=== PATIENT | male | born 1990 | race Caucasian/White ===

== ENCOUNTER 2022-01-29 17:22 | Outpatient (CLI) | payer BC ==
[2022-01-30 15:48] LABS: SARS-CoV-2 PCR by NAA Not Detected (NotDetected)
== END 2022-01-29 17:23 | disposition home or self-care (01) ==
LOC: LABBT 17:22
PROVIDERS: ATTEND Otolaryngology Plastic Surgery within the Head & Neck
DX: J34.2 Deviated nasal septum (principal); R06.00 Dyspnea, unspecified; J34.89 Other specified disorders of nose and nasal sinuses; S09.92XA Unspecified injury of nose, initial encounter; R44.8 Other symptoms and signs involving general sensations and perceptions; R06.83 Snoring; Z20.822 Contact with and (suspected) exposure to COVID-19
CPT/HCPCS: U0003; U0005

== ENCOUNTER 2022-02-03 07:22 | Day surgery (SDC) | payer BC ==
[2022-02-01 09:31] VITALS: BMI 29.7
[2022-02-03] MEDS ORDERED: AFRIN NASAL MIST 15 ML BOT ONE ×2 (09:30→10:12)
[2022-02-03] MEDS ORDERED: Lidocaine 1% w/Epinephrine 1:100K 20 ML VIAL ONE (10:12)
[2022-02-03] MEDS ORDERED: Bacitracin Zinc Ointment 30 gm TUBE ONE (10:12)
[2022-02-03] MEDS ORDERED: Midazolam HCl 2 mg/2 ml Vial ONE (10:16)
[2022-02-03] MEDS ORDERED: Fentanyl 250 MCG/5 ML VIAL ONE (10:19)
[2022-02-03] MEDS ORDERED: PROPOFOL 200 MG/20 ML VIAL ONE (10:24)
[2022-02-03] MEDS ORDERED: Lidocaine 1% PF 5 ML VIAL ONE (10:24)
[2022-02-03] MEDS ORDERED: ePHEDrine 50 MG/ML VIAL ONE (10:24)
[2022-02-03] MEDS ORDERED: Rocuronium Bromide 10 MG/ML (10ML VIAL) ONE (10:24)
[2022-02-03] MEDS ORDERED: Dexamethasone 20 MG/5 ML VIAL ONE (10:24)
[2022-02-03] MEDS ORDERED: Ondansetron PF 4 MG/2 ML Vial ONE (10:24)
[2022-02-03] MEDS ORDERED: Ketorolac Tromethamine 30 MG/ML VIAL ONE (10:24)
== END 2022-02-03 13:10 | disposition home or self-care (01) ==
LOC: SDC 07:22
PROVIDERS: ATTEND Otolaryngology Plastic Surgery within the Head & Neck
PROC: 09BT8ZZ Excision of Left Frontal Sinus, Via Natural or Artificial Opening Endoscopic (ICD-10-PCS; principal; 2022-02-03)
PROC: 09SM0ZZ Reposition Nasal Septum, Open Approach (ICD-10-PCS; principal; 2022-02-03)
PROC: 099Q8ZZ Drainage of Right Maxillary Sinus, Via Natural or Artificial Opening Endoscopic (ICD-10-PCS; principal; 2022-02-03)
PROC: 099X8ZZ Drainage of Left Sphenoid Sinus, Via Natural or Artificial Opening Endoscopic (ICD-10-PCS; principal; 2022-02-03)
PROC: 09TV8ZZ Resection of Left Ethmoid Sinus, Via Natural or Artificial Opening Endoscopic (ICD-10-PCS; principal; 2022-02-03)
PROC: 8E09XBZ Computer Assisted Procedure of Head and Neck Region (ICD-10-PCS; principal; 2022-02-03)
PROC: 09TL0ZZ Resection of Nasal Turbinate, Open Approach (ICD-10-PCS; principal; 2022-02-03)
PROC: 099R8ZZ Drainage of Left Maxillary Sinus, Via Natural or Artificial Opening Endoscopic (ICD-10-PCS; principal; 2022-02-03)
PROC: 099W8ZZ Drainage of Right Sphenoid Sinus, Via Natural or Artificial Opening Endoscopic (ICD-10-PCS; principal; 2022-02-03)
PROC: 09TU8ZZ Resection of Right Ethmoid Sinus, Via Natural or Artificial Opening Endoscopic (ICD-10-PCS; principal; 2022-02-03)
PROC: 09BS8ZZ Excision of Right Frontal Sinus, Via Natural or Artificial Opening Endoscopic (ICD-10-PCS; principal; 2022-02-03)
DX: J32.9 Chronic sinusitis, unspecified (principal); J33.8 Other polyp of sinus; J34.2 Deviated nasal septum; J34.3 Hypertrophy of nasal turbinates; J34.89 Other specified disorders of nose and nasal sinuses; F17.210 Nicotine dependence, cigarettes, uncomplicated; J45.909 Unspecified asthma, uncomplicated; Z86.16 Personal history of COVID-19
CPT/HCPCS: J1100; J1885; J2250; J2405; J2704; J3010; J3490